=== PATIENT | male | born 1980 | race Caucasian/White ===

== ENCOUNTER 2017-05-11 11:13 | Emergency (ER) | payer OTHER, MEDICARE ==
[~2017-05-11] VITALS: Ht 185.4 cm; Wt 97.1 kg
[2017-05-11 11:33] LABS: ABSOLUTE BASOPHIL COUNT 0 /CUMM (0.0-0.2); ABSOLUTE EOSINOPHIL COUNT 0.1 /CUMM (0.0-0.7); ABSOLUTE GRANULOCYTE CT 3.9 /CUMM (1.4-6.5); ABSOLUTE MONOCYTE COUNT 0.3 /CUMM (0.10-0.60); BASOPHIL % 0.4 % (0.0-2.0); GRANULOCYTE % 61.9 % (42.2-75.2); HEMATOCRIT 45.5 % (42-52); MEAN CORPUSCULAR HGB 32.7 PG (27.0-31.0); MEAN CORPUSCULAR VOLUME 93.5 FL (80.0-94.0); MEAN PLATELET VOLUME 7.1 FL (7.4-10.4); PLATELET COUNT 322 /CUMM (130-400); RBC DISTRIBUTION WIDTH 13.1 % (11.5-14.5); RED BLOOD CELL CT 4.87 /CUMM (4.70-6.10); WHITE BLOOD CELL COUNT 6.4 /CUMM (4.8-10.8)
--- NOTE | 2017-05-11 14:08 | ED CARDIAC/CP/PALPITATIONS ---
History of Present Illness General Chief Complaint: Chest Pain Stated Complaint: CHEST PAIN/SHOULDER PAIN Source: patient Exam Limitations: no limitations Vital Signs & Intake/Output Vital Signs & Intake/Output Vital Signs Date Time Temp Pulse Resp B/P B/P Pulse O2 O2 Flow FiO2 Mean Ox Delivery Rate 05/11 1536 65 138/78 05/11 1400 98.3 61 18 139/77 100 Room Air 05/11 1122 97.4 79 20 154/89 98 Room Air Allergies Coded Allergies: No Known Allergies (05/11/17) Reconcile Medications Cyclobenzaprine HCl 10 MG TABLET 1 TAB PO TID SPASMS Ibuprofen 800 MG TABLET 1 TAB PO TID PAIN Triage Note: PT TO ED C/O LEFT SHOULDER PAIN AND LEFT CHEST PAIN FOR MORE THAN 1 WEEK. COMES AND GOES PER PT. DENIES ANY INJURY/FALLING. NO SOB OR DIFF BREATHING NOTED. DENIES N/V/D. Triage Nurses Notes Reviewed? yes Onset: Last week Duration: day(s): Timing: single episode today Quality/Severity: mild, moderate (10/17) Location: central, shoulder Radiation: no radiation Activities at Onset: none Prior Chest Pain/Card Workup: no prior chest pain HPI: PATIENT IS A 36 Y/O MALE, PMH OF LUMBER DISC HERNIATION ERQUIRING SURGERY IN 2014 PRESENTING FOR ONE WEEK OF CHEST AND LEFT SHOULDER PAIN. PATIENT STATES IT STARTED SUDDENLY ABOUT AWEEK AGO AND COMES AND GOES OVER THE COURSE OF THE WEEK. THE PAIN IS TYPICALLY LESS IN THE MORNING AND WORSE THE DAY GOES ON. HE DESCRIBES THE PAIN A SHARP PAIN THAT IS NON-POSITIONAL AND NON-REPRODUCABLE UPION MANIPULATION OF THE SHOULDER. HE ALSO REPORTS OCCASIONAL PALPITATIONS. PATIENT ALSO REPORTS EPISODES OF BILATERAL BLURRY VISION THAT STARTED AT THE SAME TIME THE CHEST PAIN BUT COMES AND GOES WELL. PATIENT DENIES HEADACHES, DIZZINESS, SOB, N/V/D, COUGH, FEVER, CHILLS, LEG PAIN/SWELLING, AND DYSURIA. (Silvano Wise) Past History Travel History Traveled to [place] past 21 day No Medical History Any Pertinent Medical History? none Musculoskeletal: disk herniation (LUMBAR) Surgical History Surgical History: none (LUMBER DISC REPAIR) Psychosocial History What is your primary language Hebrew Tobacco Use: Current Daily Use Daily Tobacco Use Amount/Type: => 5 Cigarettes daily ETOH Use: denies use Illicit Drug Use: denies illicit drug use Family History Hx Contributory? No Employment History Employment Disability (SINCE 2009) (Silvano Wise) Review of Systems Review of Systems Constitutional: Reports: no symptoms. EENTM: Reports: no symptoms. Respiratory: Reports: no symptoms. Cardiovascular: Reports: see HPI. GI: Reports: no symptoms. Genitourinary: Reports: no symptoms. Musculoskeletal: Reports: see HPI. Skin: Reports: no symptoms. Neurological/Psychological: Reports: no symptoms. Hematologic/Endocrine: Reports: no symptoms. Immunologic/Allergic: Reports: no symptoms. All Other Systems: Reviewed and Negative (Silvano Wise) Physical Exam Physical Exam General Appearance: well developed/nourished, no apparent distress, alert, awake , comfortable Head: atraumatic, normal appearance Eyes: Bilateral: normal appearance, EOMI. Neck: normal inspection, full range of motion Respiratory: normal breath sounds, no respiratory distress, lungs clear, CHEST WALL TENDER LEFT SIDE Cardiovascular: regular rate/rhythm Gastrointestinal: soft, non-tender, no organomegaly Rectal: deferred Back: normal inspection, normal range of motion, no vertebral tenderness Extremities: normal inspection, normal range of motion, no edema Neurologic/Psych: no motor/sensory deficits, awake, alert, oriented x 3, normal mood/affect Skin: intact, normal color, warm/dry Core Measures ACS in differential dx? Yes CVA/TIA Diagnosis No Sepsis Present: No Sepsis Focused Exam Completed? No All Positive = PERC Ruled Out: Positive: age < 50 years, heart rate < 100 bpm, O2 sat > 94%, no hemoptysis, no hormone use, no prior DVT or PE, no unilateral leg swellin, no surgery/trauma w/ in 4w. Wells Criteria Score: 0 (Silvano Wise) Progress Differential Diagnosis: AMI, aortic dissection, cholecystitis, hyperkalemia, hypovolemia, musculoskeletal pain, myocarditis, pancreatitis, pericarditis, pneumonia, pneumothorax, pulmonary embolism, PUD/GERD, respiratory failure, unstable angina Plan of Care: Orders Procedure Date/time Status TROPONIN LEVEL 05/11 1430 Complete EKG 05/11 1430 Active TROPONIN LEVEL 05/11 1118 Complete COMPREHENSIVE METABOLIC PANEL 05/11 1118 Complete CBC WITHOUT DIFFERENTIAL 05/11 1118 Complete EKG 05/11 1114 Active Laboratory Tests 05/11/17 1423: Troponin I < 0.01 05/11/17 1127: Anion Gap 12, Estimated GFR > 60, BUN/Creatinine Ratio 18.8, Glucose 155 H, Calcium 9.6, Total Bilirubin 0.5, AST 33, ALT 76 H, Alkaline Phosphatase 54, Troponin I < 0.01, Total Protein 7.3, Albumin 4.6, Globulin 2.7, Albumin/ Globulin Ratio 1.7, CBC w Diff NO MAN DIFF REQ, RBC 4.87, MCV 93.5, MCH 32.7 H, RDW 13.1, MPV 7.1 L, Gran % 61.9, Lymphocytes % 31.2, Monocytes % 4.5, Eosinophils % 2.0, Basophils % 0.4, Absolute Granulocytes 3.9, Absolute Lymphocytes 2.0, Absolute Monocytes 0.3, Absolute Eosinophils 0.1, Absolute Basophils 0, PUBS MCHC 35.0 Diagnostic Imaging: Viewed by Me: Radiology Read. Discussed w/RAD: Radiology Read. Radiology Impression: PATIENT: GABO LIZAMA PRESENT AGE: 36 PATIENT ACCOUNT NO: [id number] : 78 LOCATION: [facility] ORDERING PHYSICIAN: Silvano LINDER SERVICE DATE: 05/11/17 EXAM TYPE: RAD - XRY-SHOULDER COMPLETE-LEFT EXAMINATION: SHOULDER 4 VIEWS, LEFT CLINICAL INFORMATION: Left shoulder pain. COMPARISON: None. TECHNIQUE: AP views of the left shoulder were obtained in internal and external rotation. In addition, axillary and Y views were obtained. FINDINGS: There are no fractures or dislocations. The humeral head is seated within a well-formed glenoid. The AC joint is intact. IMPRESSION: Unremarkable left shoulder radiographs. DICTATED BY : Andre Frey MD DATE/TIME DICTATED:05/11/171408 CONTRACT FORESTER:BRYCE DATE/TIME TRANSCRIBED:05/11/171408 CONFIDENTIAL, DO NOT COPY WITHOUT APPROPRIATE AUTHORIZATION. <Electronically signed in Other Vendor System> SIGNED BY: Andre Frey MD 05/11/17 1415, PATIENT: GABO LIZAMA PRESENT AGE: 36 PATIENT ACCOUNT NO: [id number] : 78 LOCATION: [facility] ORDERING PHYSICIAN: Silvano LINDER SERVICE DATE: 05/11/171323 EXAM TYPE: RAD - XRY-CHEST XRAY, TWO VIEWS EXAMINATION: CHEST 2 VIEWS CLINICAL INFORMATION: Chest pain. COMPARISON: None. TECHNIQUE: PA and lateral views of the chest were obtained. FINDINGS: The cardiac silhouette is not enlarged. The mediastinal and hilar contours are unremarkable. There are neither pleural effusions nor pneumothoraces. There are no consolidations. The osseous structures are unremarkable. IMPRESSION: No evidence for acute disease. DICTATED BY: Andre Frey MD DATE/TIME DICTATED:05/11/171408 CONTRACT FORESTER: BRYCE DATE/TIME TRANSCRIBED:05/11/171408 CONFIDENTIAL, DO NOT COPY WITHOUT APPROPRIATE AUTHORIZATION. <Electronically signed in Other Vendor System> SIGNED BY: Andre Frey MD 05/11/17 1412 Initial ED EKG: normal sinus rhythm, rate (77) Repeat EKG: unchanged (Silvano Wise) Departure Departure Disposition: HOME OR SELF CARE Condition: Stable Clinical Impression Primary Impression: Chest wall tenderness Referrals: Patient Has No Primary Care Dr (PCP/Family) Additional Instructions: Taking ibuprofen and Flexeril as prescribed. Follow-up with PCP. Return if any other concerns. Please go over all results of today's visit with your primary care doctor. Contact your primary care doctor to let them know you were here in the emergency room. There may be nonspecific findings which may not be related to your visit today here in the emergency room but may require further evaluation and chronic monitoring by your primary care doctor. If you had a laceration today the chance of foreign body always remains. You should follow-up with your primary care doctor for recheck in 3-5 days for a wound check. If you had an x-ray done there is a chance that a fracture could have been missed on initial read and you should follow-up with your primary care doctor for repeat x-rays if symptoms persist. If your blood pressure was elevated here in the emergency room please have rechecked by [facility] primary care doctor within the next 48. If you were prescribed a narcotic here in the emergency room or any type of controlled substances you're not allowed to drive while taking this medication or operate any type of heavy machinery. Narcotics can make you feel lightheaded dizziness nausea and can cause constipation. You may need to hot die picker a stool softener. Thank you for choosing [facility] emergency room. Please return to the emergency room immediately if you have any other concerns worsening of symptoms. Departure Forms: Customer Survey General Discharge Information Prescriptions: Current Visit Scripts Ibuprofen 1 TAB PO TID #30 TAB Cyclobenzaprine HCl 1 TAB PO TID #20 TAB Comments 05/11/2017 6:12:36 PM Patient clinically looks well. Pain is reproducible. No suspicion for pulmonary embolism. 2 troponins negative. I feel this is more musculoskeletal as opposed to cardiac pain. Return if any other concerns. Patient is currently not exhibiting any type of visual disturbances. He looks well. He will follow- up as outpatient. (Slivano Wise) PA/PREPARATION SUPERVISOR FREEZING Co-Sign Statement Statement: ED Attending supervision documentation- [] I saw and evaluated the patient. I have also reviewed all the pertinent lab results and diagnostic results. I agree with the findings and the plan of care as documented in the PA's/PREPARATION SUPERVISOR FREEZING's documentation. [X] I have reviewed the ED Record and agree with the PA's/PREPARATION SUPERVISOR FREEZING's documentation. [] Additions or exceptions (if any) to the PAs/PREPARATION SUPERVISOR FREEZING's note and plan are summarized below: [] (Nando ROBERTS,Brianda) Critical Care Note Critical Care Note Critical Care Time: non-applicable (Silvano Wise)
--- NOTE | 2017-05-11 14:12 | RADIOLOGY REPORT ---
EXAMINATION: CHEST 2 VIEWS CLINICAL INFORMATION: Chest pain. COMPARISON: None. TECHNIQUE: PA and lateral views of the chest were obtained. FINDINGS: The cardiac silhouette is not enlarged. The mediastinal and hilar contours are unremarkable. There are neither pleural effusions nor pneumothoraces. There are no consolidations. The osseous structures are unremarkable. IMPRESSION: No evidence for acute disease.
--- NOTE | 2017-05-11 14:15 | RADIOLOGY REPORT ---
EXAMINATION: SHOULDER 4 VIEWS, LEFT CLINICAL INFORMATION: Left shoulder pain. COMPARISON: None. TECHNIQUE: AP views of the left shoulder were obtained in internal and external rotation. In addition, axillary and Y views were obtained. FINDINGS: There are no fractures or dislocations. The humeral head is seated within a well-formed glenoid. The AC joint is intact. IMPRESSION: Unremarkable left shoulder radiographs.
[2017-05-11] MEDS ORDERED: IBUPROFEN800 M1 PO (15:30)
[2017-05-11] MEDS ORDERED: CYCLOBENZAPRINE10 M1 PO (15:30)
[2017-05-11 15:36] VITALS: BP 138/78
== END 2017-05-11 15:37 ==
LOC: ERH 11:13
PROVIDERS: Emergency Medicine
DX: R07.89 Other chest pain (principal)
CPT/HCPCS: 71046; 73030-LT; 93005; 93010